=== PATIENT | female | born 1960 | race African-American/Black ===

== ENCOUNTER 2017-04-19 02:59 | Emergency (ER) | payer SELFPAY ==
[2017-04-19] MEDS ORDERED: Fentanyl 100 MCG/2 ML VIAL ONE (04:13)
[2017-04-19] MEDS ORDERED: Adacel (T-DAP) 0.5 ML VIAL ONE (07:13)
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
== END 2017-04-19 07:33 | disposition home or self-care (01) ==
LOC: ERS 02:59
DX: S02.5XXA Fracture of tooth (traumatic), initial encounter for closed fracture (principal); E11.9 Type 2 diabetes mellitus without complications; I10 Essential (primary) hypertension; Y04.0XXA Assault by unarmed brawl or fight, initial encounter
CPT/HCPCS: 70486; 72125; 90471; 90715; 96374; J3010

== ENCOUNTER 2018-01-17 15:11 | Emergency (ER) | payer SELFPAY ==
--- NOTE | 2018-01-17 15:52 | RAD ---
LEFT ANKLE THREE VIEWS: 01/17/18 HISTORY: Pain. Fall. COMPARISON: None. FINDINGS: There is mild bone demineralization. Joint spaces are preserved. There is no fracture. No significan t soft tissue swelling. IMPRESSION: 1. No fracture. 2. Mild bone demineralization. 1. POS: [facility]
--- NOTE | 2018-01-17 15:54 | RAD ---
LEFT KNEE FOUR VIEWS: 01/17/18 COMPARISON: 11/03/15. HISTORY: Pain. FINDINGS: There is a suprapatellar effusion. There is severe tricompartmental degenerative change. No obvious f racture. IMPRESSION: 1. Severe tricompartmental degenerative change. 2. Small suprapatellar effusion. POS: [facility]
[2018-01-17] MEDS ORDERED: Ketorolac Tromethamine 30 MG/ML VIAL ONE (17:31)
[2018-01-17] MEDS ORDERED: traMADol HCl 50 MG TAB ONE (18:38)
== END 2018-01-17 19:35 | disposition home or self-care (01) ==
LOC: ERS 15:11
DX: M25.562 Pain in left knee (principal); E11.9 Type 2 diabetes mellitus without complications; I10 Essential (primary) hypertension; F17.210 Nicotine dependence, cigarettes, uncomplicated
CPT/HCPCS: 96372; J1885

== ENCOUNTER 2019-12-25 03:19 | Emergency (ER) | payer SELFPAY ==
[2019-12-25] MEDS ORDERED: Boostrix 0.5 ML VIAL ONE (03:36)
[2019-12-25 04:03] LABS: #Basophils 0.1 thou/uL (0.0-0.2); #Eosinphils 0.1 thou/uL (0.0-0.7); #Lymphocytes 3.9 thou/uL (1.20-3.40); #Monocytes 0.7 thou/uL (0.11-0.59); #Neutrophils 8.6 thou/uL (1.40-6.50); %Basophils 0.5 % (0.0-1.0); %Eosinophils 0.6 % (0.0-10.0); %Lymphocytes 29.2 % (21.0-51.0); %Monocytes 5.2 % (0.0-10.0); %Neutrophils 64.5 % (42.0-75.0); Hemoglobin 12.8 g/dL (12.0-16.0); Mean Corpuscular HGB CONC 33.1 g/dL (32.0-36.0); Mean Corpuscular Volume 93.6 fL (78.0-98.0); Mean Platelet Volume 7.1 fL (7.4-10.4); Platelet Count 373 thou/uL (130-400); RBC Distribution Width 12.1 % (11.5-14.5); Red Blood Cell (RBC) Count 4.14 mill/uL (4.20-5.40); White Blood Cell (WBC) Count 13.4 thou/uL (4.8-10.8)
[2019-12-25 04:23] LABS: ALT (SGPT) 14 U/L (8-55); AST (SGOT) 19 U/L (5-34); Albumin 3.8 g/dL (3.5-5.0); Alcohol Less than 10 mg/dL (Less than 10); Alkaline Phosphatase 74 U/L (40-110); Anion Gap 14 mmol/L (10-20); BUN (Urea Nitrogen) 17 mg/dL (9.8-20.1); Bilirubin, Total 0.4 mg/dL (0.2-1.2); Calc. Creatinine Clearance 0 mL/min (70-130); Calcium 8.9 mg/dL (7.8-10.44); Carbon Dioxide 21 mmol/L (22-29); Chloride 104 mmol/L (98-107); Estimated GFR-MDRD 89; Globulin 3.6 g/dL (2.4-3.5); Glucose 149 mg/dL (70-105); Protein, Total 7.4 g/dL (6.0-8.3); Sodium 136 mmol/L (136-145)
[2019-12-25] MEDS ORDERED: Proparacaine 0.5% Opth 15 ML BOT ONE ×2 (04:28→06:16)
[2019-12-25] MEDS ORDERED: Lidocaine 1% (PF) 30 ML VIAL ONE (04:41)
[2019-12-25 06:06] LABS: Amphetamine Not Detected (NotDetected); Barbiturates Screen Not Detected (NotDetected); Benzodiazepine Screen Not Detected (NotDetected); Cocaine Metabolite Screen Detected (NotDetected); Medtox Control Line Valid? VALID (VALID); Medtox Reader # READER 4; Methadone Not Detected (NotDetected); Methamphetamine Not Detected (NotDetected); Opiate Screen Not Detected (NotDetected); Oxycodone Screen Not Detected (NotDetected); Phencyclidine (PCP) Not Detected (NotDetected); THC/Cannabinoid Screen Not Detected (NotDetected); Tricyclic Screen Not Detected (NotDetected)
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
--- NOTE | 2019-12-25 09:12 | RAD ---
LEFT KNEE 4 VIEWS: Date: 12/25/2019 INDICATION: Left knee pain. COMPARISON: Prior exam dated 01/17/2018. FINDINGS: There are stable changes of remote appearing depressed type lateral tibial plateau fracture that appe ars healed. There is advanced left knee osteoarthritis that is similar appearing. There is mild joint capsular distention. No acute fracture or subluxation is evident. IMPRESSION: No acute osseous abnormality. Post-traumatic and prominent degenerative change of the left knee. POS: [facility]
[2019-12-25] MEDS ORDERED: Iopamidol 370 76% 100 ML VIAL ONE (09:47)
== END 2019-12-25 08:59 | disposition short-term general hospital (02) ==
LOC: ERS 03:19
DX: S02.411A LeFort I fracture, initial encounter for closed fracture (principal); S02.31XA Fracture of orbital floor, right side, initial encounter for closed fracture; S01.511A Laceration without foreign body of lip, initial encounter; R04.0 Epistaxis; W18.30XA Fall on same level, unspecified, initial encounter
CPT/HCPCS: 12011; 36415; 51701; 70450; 70486; 71260; 72125; 74177; 80053; 80306; 80307; 85025; 90471; 90715; 94760; 96365; J0690; J2001; Q9967

== ENCOUNTER 2023-04-11 17:15 | Emergency (ER) | payer SELFPAY ==
[2023-04-11] MEDS ORDERED: Ketorolac Tromethamine 30 MG (1 mL) VIAL ONE (18:11)
== END 2023-04-11 18:47 | disposition home or self-care (01) ==
LOC: ERS 17:15
DX: S83.91XA Sprain of unspecified site of right knee, initial encounter (principal); M79.671 Pain in right foot; I10 Essential (primary) hypertension; E11.9 Type 2 diabetes mellitus without complications; F17.210 Nicotine dependence, cigarettes, uncomplicated; X50.1XXA Overexertion from prolonged static or awkward postures, initial encounter
CPT/HCPCS: 96372; J1885

== ENCOUNTER 2023-06-15 16:02 | Inpatient (IN) | payer SELFPAY ==
[2023-06-15 16:50] LABS: #Eosinphils 0.1 thou/uL (0.0-0.7); #Monocytes 0.8 thou/uL (0.11-0.59); #Neutrophils 7.5 thou/uL (1.40-6.50); %Basophils 0.4 % (0.0-1.0); %Eosinophils 0.7 % (0.0-10.0); %Lymphocytes 13.6 % (21.0-51.0); %Monocytes 8.2 % (0.0-10.0); %Neutrophils 76.8 % (42.0-75.0); Hematocrit 43.6 % (36.0-47.0); Mean Corpuscular HGB CONC 32.1 g/dL (32.0-36.0); Mean Corpuscular Hemoglobin 29.8 pg (27.0-31.0); Mean Corpuscular Volume 92.8 fl (78.0-98.0); Mean Platelet Volume 9.5 fL (7.4-10.4); Platelet Count 277 10x3/uL (130-400); RBC Distribution Width 12.9 % (11.5-14.5); White Blood Cell (WBC) Count 9.8 10x3/uL (4.8-10.8)
[2023-06-15] MEDS ORDERED: Ondansetron PF 4 MG/2 ML Vial ONE (17:12)
[2023-06-15] MEDS ORDERED: Morphine 4 MG/ML VIAL ONE ×2 (17:12→20:15)
[2023-06-15 17:13] LABS: ALT (SGPT) 8 U/L (8-55); AST (SGOT) 15 U/L (5-34); Alkaline Phosphatase 58 U/L (40-110); Anion Gap 13 mmol/L (10-20); BUN (Urea Nitrogen) 14 mg/dL (9.8-20.1); Bilirubin, Total 0.7 mg/dL (0.2-1.2); Calc. Creatinine Clearance 0 mL/min (70-130); Carbon Dioxide 28 mmol/L (22-29); Chloride 105 mmol/L (98-107); Estimated GFR 62; Globulin 3.9 g/dL (2.4-3.5); Glucose 114 mg/dL (70-105); Lipase 4 U/L (8-78); Potassium 3.7 mmol/L (3.5-5.1); Protein, Total 7.9 g/dL (6.0-8.3); Sodium 142 mmol/L (136-145)
[2023-06-15 17:16] LABS: Troponin I Less than 0.010 ng/mL (< 0.028)
[2023-06-15] MEDS ORDERED: Ondansetron ODT 4 MG TAB SL PRN (21:00)
[2023-06-15] MEDS ORDERED: Ondansetron PF 4 MG/2 ML Vial IVP PRN ×2 (21:00→21:37)
[2023-06-15] MEDS ORDERED: Nicotine 14 MG PATCH TD PRN (21:37)
[2023-06-15] MEDS ORDERED: Ondansetron ODT 4 MG TAB PO PRN (21:37)
[2023-06-15 22:34] VITALS: BMI 21.6
[2023-06-15 22:35] LABS: Hemoglobin A1c 4.8 % (4.0-6.0)
[2023-06-15 23:42] LABS: Troponin I Less than 0.010 ng/mL (< 0.028)
[2023-06-16] MEDS: Morphine 4 MG/ML VIAL SLOW IVP PRN (00:55)
[2023-06-16] MEDS ORDERED: Morphine 4 MG/ML VIAL ONE ×2 (00:57→05:50)
[2023-06-16 04:17] LABS: Troponin I Less than 0.010 ng/mL (< 0.028)
[2023-06-16 05:00] LABS: #Monocytes 1.3 thou/uL (0.11-0.59); #Neutrophils 8.4 thou/uL (1.40-6.50); %Basophils 0.2 % (0.0-1.0); %Eosinophils 0.2 % (0.0-10.0); %Lymphocytes 10.4 % (21.0-51.0); %Monocytes 12.1 % (0.0-10.0); %Neutrophils 76.7 % (42.0-75.0); Hematocrit 41.1 % (36.0-47.0); Hemoglobin 13.3 g/dL (12.0-16.0); Mean Corpuscular HGB CONC 32.4 g/dL (32.0-36.0); Mean Corpuscular Hemoglobin 29.5 pg (27.0-31.0); Mean Corpuscular Volume 91.1 fl (78.0-98.0); Mean Platelet Volume 9.8 fL (7.4-10.4); Platelet Count 263 10x3/uL (130-400); RBC Distribution Width 12.9 % (11.5-14.5); Red Blood Cell (RBC) Count 4.51 mill/uL (4.20-5.40)
[2023-06-16 05:30] LABS: Anion Gap 12 mmol/L (10-20); BUN (Urea Nitrogen) 13 mg/dL (9.8-20.1); Calc. Creatinine Clearance 66 mL/min (70-130); Calcium 9.6 mg/dL (7.8-10.44); Carbon Dioxide 26 mmol/L (22-29); Chloride 103 mmol/L (98-107); Estimated GFR 78; Glucose 114 mg/dL (70-105); Potassium 3.8 mmol/L (3.5-5.1); Sodium 137 mmol/L (136-145)
[2023-06-16] MEDS: Amlodipine 5 MG TAB PO SCH (09:51)
[2023-06-16] MEDS: Famotidine 20 MG TAB PO SCH (09:51)
[2023-06-16] MEDS ORDERED: HumaLOG 300 UNITS/3 ML VIAL SC PRN (11:07)
[2023-06-16] MEDS ORDERED: Glucagon 1 MG/ML KIT IM PRN (11:07)
[2023-06-16] MEDS ORDERED: Dextrose 5% in Water 1,000 ML IV PRN (11:07)
[2023-06-16] MEDS ORDERED: Dextrose 50% Abboject 50 ML SYRINGE SLOW IVP PRN (11:07)
[2023-06-16] MEDS: traMADol HCl 50 MG TAB PO PRN (12:24)
[2023-06-16] MEDS: Lidocaine 1% (PF) 30 ML VIAL SC SCH (13:57)
[2023-06-16 14:41] LABS: Synovial Fluid, Protein 4.3 g/dL (Not Available)
[2023-06-16 15:39] LABS: RBC Count-Automated (BF) 2336 /cu.mm; WBC/Nucleated-Auto (BF) 40295 /cu.mm
[2023-06-16 15:40] LABS: BF Color Yellow; Body Fluid Source Synovial Fluid; Clarity Cloudy/Turbid (Clear); Tube # EDTA
[2023-06-16 16:08] LABS: BF Segmented Neutrophils 85 %; Cell Count Non Hematic 13 %; Lymphocytes 2 %
[2023-06-16 19:59] LABS: Amphetamine Not Detected (NotDetected); Barbiturates Screen Not Detected (NotDetected); Benzodiazepine Screen Not Detected (NotDetected); Cocaine Metabolite Screen Detected (NotDetected); Methadone Not Detected (NotDetected); Methamphetamine Not Detected (NotDetected); Opiate Screen Detected (NotDetected); Oxycodone Screen Not Detected (NotDetected); Phencyclidine (PCP) Not Detected (NotDetected); THC/Cannabinoid Screen Not Detected (NotDetected); Tricyclic Screen Not Detected (NotDetected)
[2023-06-16] MEDS: Atorvastatin Calcium 20 MG TAB PO SCH (21:09)
[2023-06-17] MEDS: Aspirin 81 mg Enteric Coated Tablet PO SCH (09:40)
[2023-06-17] MEDS: cefTRIAXone\\ROCEPHIN 1 GM in Sodium Chloride 0.9% 100 ML IVPB SCH (09:40)
[2023-06-17] MEDS: Vancomycin 1 GM in Premix 1 BAG IVPB SCH (09:47)
[2023-06-17] MEDS ORDERED: Vancomycin (BATCH) 1.25 GM in Premix 1 BAG IVPB SCH (10:00)
[2023-06-17] MEDS: Vancomycin (BATCH) 1.5 GM in Premix 1 BAG IVPB SCH (11:34)
[2023-06-17] MEDS: Ibuprofen 600 MG TAB PO PRN (13:40)
[2023-06-17] MEDS: Vancomycin HCl 750 MG in Sodium Chloride 0.9% 250 ML 250 ML IVPB SCH (23:11)
[2023-06-18 06:26] LABS: #Eosinphils 0.1 thou/uL (0.0-0.7); #Monocytes 1.4 thou/uL (0.11-0.59); #Neutrophils 6.1 thou/uL (1.40-6.50); %Basophils 0.3 % (0.0-1.0); %Eosinophils 0.8 % (0.0-10.0); %Lymphocytes 17.1 % (21.0-51.0); %Monocytes 15.2 % (0.0-10.0); %Neutrophils 66.3 % (42.0-75.0); Hematocrit 36.6 % (36.0-47.0); Mean Corpuscular HGB CONC 32.8 g/dL (32.0-36.0); Mean Corpuscular Hemoglobin 30.5 pg (27.0-31.0); Mean Corpuscular Volume 93.1 fl (78.0-98.0); Mean Platelet Volume 9.6 fL (7.4-10.4); Platelet Count 251 10x3/uL (130-400); RBC Distribution Width 12.9 % (11.5-14.5); Red Blood Cell (RBC) Count 3.93 mill/uL (4.20-5.40); White Blood Cell (WBC) Count 9.2 10x3/uL (4.8-10.8)
[2023-06-18 06:47] LABS: Anion Gap 11 mmol/L (10-20); BUN (Urea Nitrogen) 15 mg/dL (9.8-20.1); Calc. Creatinine Clearance 70 mL/min (70-130); Calcium 9.5 mg/dL (7.8-10.44); Carbon Dioxide 28 mmol/L (22-29); Chloride 102 mmol/L (98-107); Estimated GFR 86; Glucose 92 mg/dL (70-105); Potassium 4.2 mmol/L (3.5-5.1); Sodium 137 mmol/L (136-145)
[2023-06-18 06:52] LABS: Vancomycin, Random 10.7 ug/mL (See Comment)
[2023-06-18] MEDS: Vancomycin 1 GM in Premix 1 BAG IVPB SCH (13:00)
[2023-06-18] MEDS: Ketorolac Tromethamine 30 MG (1 mL) VIAL IVP PRN (13:34)
[2023-06-19] MEDS: Mineral Oil ENEMA PR SCH (00:48)
[2023-06-19] MEDS: Bisacodyl 10 MG SUPP PR PRN (01:50)
[2023-06-19 05:21] LABS: #Eosinphils 0.1 thou/uL (0.0-0.7); #Monocytes 1.1 thou/uL (0.11-0.59); %Basophils 0.4 % (0.0-1.0); %Eosinophils 1.3 % (0.0-10.0); %Lymphocytes 18.4 % (21.0-51.0); %Monocytes 12.5 % (0.0-10.0); %Neutrophils 67.1 % (42.0-75.0); Hematocrit 36.4 % (36.0-47.0); Hemoglobin 11.6 g/dL (12.0-16.0); Mean Corpuscular HGB CONC 31.9 g/dL (32.0-36.0); Mean Corpuscular Hemoglobin 29.9 pg (27.0-31.0); Mean Corpuscular Volume 93.8 fl (78.0-98.0); Mean Platelet Volume 10.1 fL (7.4-10.4); Platelet Count 273 10x3/uL (130-400); Red Blood Cell (RBC) Count 3.88 mill/uL (4.20-5.40); White Blood Cell (WBC) Count 8.9 10x3/uL (4.8-10.8)
[2023-06-19 05:41] LABS: Anion Gap 12 mmol/L (10-20); BUN (Urea Nitrogen) 18 mg/dL (9.8-20.1); Calc. Creatinine Clearance 72 mL/min (70-130); Calcium 9.4 mg/dL (7.8-10.44); Carbon Dioxide 24 mmol/L (22-29); Chloride 105 mmol/L (98-107); Estimated GFR 88; Glucose 77 mg/dL (70-105); Potassium 4.3 mmol/L (3.5-5.1); Sodium 137 mmol/L (136-145)
[2023-06-19] MEDS: Acetaminophen 325 MG TAB PO PRN (17:04)
[2023-06-20 08:14] LABS: #Eosinphils 0.2 thou/uL (0.0-0.7); #Monocytes 0.7 thou/uL (0.11-0.59); #Neutrophils 4.5 thou/uL (1.40-6.50); %Basophils 0.6 % (0.0-1.0); %Eosinophils 2.3 % (0.0-10.0); %Lymphocytes 25.5 % (21.0-51.0); %Monocytes 9.7 % (0.0-10.0); %Neutrophils 61.8 % (42.0-75.0); Hematocrit 35.9 % (36.0-47.0); Hemoglobin 11.8 g/dL (12.0-16.0); Mean Corpuscular HGB CONC 32.9 g/dL (32.0-36.0); Mean Corpuscular Hemoglobin 30.1 pg (27.0-31.0); Mean Corpuscular Volume 91.6 fl (78.0-98.0); Mean Platelet Volume 9.7 fL (7.4-10.4); Platelet Count 316 10x3/uL (130-400); RBC Distribution Width 12.8 % (11.5-14.5); Red Blood Cell (RBC) Count 3.92 mill/uL (4.20-5.40); White Blood Cell (WBC) Count 7.3 10x3/uL (4.8-10.8)
[2023-06-20 08:42] LABS: Vancomycin, Random 20.8 ug/mL (See Comment)
[2023-06-20 08:43] LABS: Anion Gap 11 mmol/L (10-20); BUN (Urea Nitrogen) 16 mg/dL (9.8-20.1); Calc. Creatinine Clearance 81 mL/min (70-130); Calcium 9.4 mg/dL (7.8-10.44); Carbon Dioxide 29 mmol/L (22-29); Chloride 103 mmol/L (98-107); Estimated GFR 99; Glucose 87 mg/dL (70-105); Potassium 4.3 mmol/L (3.5-5.1); Sodium 139 mmol/L (136-145)
[2023-06-20 16:12] LABS: Fungus Stain Final report (.)
[2023-06-21 05:44] LABS: #Basophils 0.04 10x3/uL (0.0-0.2); %Basophils 0.5 % (0.0-1.0); %Eosinophils 2.5 % (0.0-10.0); %Lymphocytes 23.5 % (21.0-51.0); %Monocytes 11.4 % (0.0-10.0); %Neutrophils 61.8 % (42.0-75.0); Hematocrit 35.6 % (36.0-47.0); Hemoglobin 11.6 g/dL (12.0-16.0); Mean Corpuscular HGB CONC 32.6 g/dL (32.0-36.0); Mean Corpuscular Hemoglobin 29.9 pg (27.0-31.0); Mean Corpuscular Volume 91.8 fL (78.0-98.0); Mean Platelet Volume 9.5 fL (7.4-10.4); Platelet Count 301 10x3/uL (130-400); RBC Distribution Width 12.5 % (11.5-14.5); Red Blood Cell (RBC) Count 3.88 mill/uL (4.20-5.40)
[2023-06-21 06:03] LABS: Anion Gap 12 mmol/L (10-20); BUN (Urea Nitrogen) 18 mg/dL (9.8-20.1); Calc. Creatinine Clearance 72 mL/min (70-130); Carbon Dioxide 28 mmol/L (22-29); Chloride 104 mmol/L (98-107); Estimated GFR 88; Glucose 112 mg/dL (70-105); Sodium 140 mmol/L (136-145)
[2023-06-21 14:23] VITALS: BP 123/88; TEMP 98
== END 2023-06-21 14:56 | disposition home or self-care (01) | DRG 550 ==
LOC: ERS 16:02 → 2NO 20:45 → ERHOLD 20:45 → 2NO 06-16 08:46 → OBSVTOIN 06-16 14:29 → T4-A 06-17 20:54
PROVIDERS: ADMIT Student in an Organized Health Care Education/Training Program; ATTEND Hospitalist
PROC: 0S9C3ZZ Drainage of Right Knee Joint, Percutaneous Approach (ICD-10-PCS; principal; 2023-06-16)
DX: M00.9 Pyogenic arthritis, unspecified (principal); M25.461 Effusion, right knee; G89.29 Other chronic pain; M17.11 Unilateral primary osteoarthritis, right knee; M81.0 Age-related osteoporosis without current pathological fracture; F19.10 Other psychoactive substance abuse, uncomplicated; F17.210 Nicotine dependence, cigarettes, uncomplicated; F14.10 Cocaine abuse, uncomplicated; F10.90 Alcohol use, unspecified, uncomplicated; I10 Essential (primary) hypertension; E11.9 Type 2 diabetes mellitus without complications; Z91.199 Patient's noncompliance with other medical treatment and regimen due to unspecified reason; Z79.899 Other long term (current) drug therapy; Z90.49 Acquired absence of other specified parts of digestive tract; Z71.6 Tobacco abuse counseling; Z71.51 Drug abuse counseling and surveillance of drug abuser; Z79.82 Long term (current) use of aspirin
CPT/HCPCS: 36415; 36416; 71045; 76999; 80048; 80053; 80202; 80306; 82945; 83036; 83690; 83735; 84157; 84484; 85025; 85060; 86140; 87040; 87070; 87102; 87116; 87205; 87206; 89051; 89060; 93005; 93306; 96374; 96375; 96376; G0378; J0696; J1885; J2270; J2405; J3370; J3370-JW; J3490; J7050

== ENCOUNTER 2023-09-30 03:42 | Emergency (ER) | payer SELFPAY ==
[2023-09-30] MEDS ORDERED: Acetaminophen 500 MG TAB ONE (04:43)
[2023-09-30 04:47] LABS: #Basophils 0.04 10x3/uL (0.0-0.2); %Basophils 0.4 % (0.0-1.0); %Eosinophils 0.5 % (0.0-10.0); %Lymphocytes 19.6 % (21.0-51.0); %Monocytes 10.1 % (0.0-10.0); Mean Corpuscular HGB CONC 34.3 g/dL (32.0-36.0); Mean Corpuscular Hemoglobin 30.3 pg (27.0-31.0); Mean Corpuscular Volume 88.4 fL (78.0-98.0); Mean Platelet Volume 9.6 fL (7.4-10.4); Platelet Count 217 10x3/uL (130-400); RBC Distribution Width 14.3 % (11.5-14.5); Red Blood Cell (RBC) Count 3.96 mill/uL (4.20-5.40)
[2023-09-30 05:12] LABS: PTT 28.5 sec (22.9-36.1); Prothrombin Time 12.8 sec (12.0-14.7)
[2023-09-30 05:15] LABS: Troponin I Less than 0.010 ng/mL (< 0.028)
[2023-09-30 05:40] LABS: ALT (SGPT) 18 U/L (8-55); AST (SGOT) 25 U/L (5-34); Albumin 3.4 g/dL (3.5-5.0); Alkaline Phosphatase 58 U/L (40-110); Anion Gap 13 mmol/L (10-20); BUN (Urea Nitrogen) 15 mg/dL (9.8-20.1); Bilirubin, Total 0.7 mg/dL (0.2-1.2); Calc. Creatinine Clearance 0 mL/min (70-130); Carbon Dioxide 22 mmol/L (22-29); Chloride 110 mmol/L (98-107); Estimated GFR 84; Globulin 3.7 g/dL (2.4-3.5); Glucose 86 mg/dL (70-105); Lipase 9 U/L (8-78); Magnesium 1.8 mg/dL (1.6-2.6); Potassium 4.1 mmol/L (3.5-5.1); Protein, Total 7.1 g/dL (6.0-8.3); Sodium 141 mmol/L (136-145)
[2023-09-30] MEDS ORDERED: Bacitracin 1 PK ONE (06:00)
== END 2023-09-30 06:06 | disposition home or self-care (01) ==
LOC: ERS 03:42
DX: S31.010A Laceration without foreign body of lower back and pelvis without penetration into retroperitoneum, initial encounter (principal); S80.11XA Contusion of right lower leg, initial encounter; R07.89 Other chest pain; E11.9 Type 2 diabetes mellitus without complications; I10 Essential (primary) hypertension; Y04.8XXA Assault by other bodily force, initial encounter
CPT/HCPCS: 71045; 80053; 83690; 83735; 83880; 84443; 84484; 85025; 85610; 85730; 93005

== ENCOUNTER 2024-09-26 15:25 | Emergency (ER) | payer SELFPAY ==
[~2024-09-26 15:25] MED LIST: Iopamidol-370 76% 500 ML MDV (1 ML CHARGE) ONE
[2024-09-26] MEDS ORDERED: Acetaminophen 500 MG TAB ONE (15:56)
[2024-09-26 16:12] LABS: #Basophils 0.04 10x3/uL (0.0-0.2); #Eosinophils 0.09 10x3/uL (0.0-0.7); #Monocytes 1.21 10x3/uL (0.11-0.59); #Neutrophils 8.26 10x3/uL (1.40-6.50); %Basophils 0.3 % (0.0-1.0); %Eosinophils 0.8 % (0.0-10.0); %Lymphocytes 16.9 % (21.0-51.0); %Monocytes 10.4 % (0.0-10.0); Hematocrit 36.1 % (36.0-47.0); Hemoglobin 12.2 g/dL (12.0-16.0); Mean Corpuscular HGB CONC 33.8 g/dL (32.0-36.0); Mean Corpuscular Hemoglobin 30.3 pg (27.0-31.0); Mean Corpuscular Volume 89.6 fL (78.0-98.0); Mean Platelet Volume 9.1 fL (7.4-10.4); Platelet Count 259 10x3/uL (130-400); RBC Distribution Width 13.2 % (11.5-14.5); Red Blood Cell (RBC) Count 4.03 mill/uL (4.20-5.40); White Blood Cell (WBC) Count 11.64 10x3/uL (4.8-10.8)
[2024-09-26 16:14] LABS: Actual Bicarbonate (HCO3v) 29.9 mEq/L (22-28); Base Excess 3.7 mEq/L (-2.0 to +3.0); Calcium, Ionized (venous) 1.15 mmol/L (1.16-1.32); Chloride (VBG) 104 mmol/L (98-106); Hematocrit-VBG 39 % (36.0-47.0); Hemoglobin (Hb) 13.2 g/dL (11.7-16.0); Potassium (VBG) 3.78 mmol/L (3.70-5.30); Sodium 142 mmol/L (133-146); pH (venous) 7.379 (7.32-7.43)
[2024-09-26 16:28] LABS: Acetaminophen Less than 10 mcg/mL (Less than 10); Alcohol Less than 10.0 mg/dL (Less than 10); Salicylate Less than 8.0 mg/dL (Less than 8.0)
[2024-09-26 16:30] LABS: ALT (SGPT) 14 U/L (Less than 34); AST (SGOT) 20 U/L (11-34); Albumin 3.4 g/dL (3.1-4.5); Alkaline Phosphatase 88 U/L (40-110); Anion Gap 15 mmol/L (10-20); BUN (Urea Nitrogen) 13 mg/dL (9.8-20.1); Bilirubin, Total 0.2 mg/dL (0.3-1.2); Calc. Creatinine Clearance 0 mL/min (70-130); Calcium 9.1 mg/dL (7.8-10.44); Carbon Dioxide 28 mmol/L (23-31); Chloride 103 mmol/L (98-107); Estimated GFR 94; Globulin 3.6 g/dL (2.4-3.5); Glucose 94 mg/dL (80-115); Lipase 14 U/L (8-78); Potassium 3.7 mmol/L (3.5-5.1); Sodium 142 mmol/L (136-145)
[2024-09-26 16:41] LABS: Bilirubin Negative (Negative); Blood, Urine Negative (Negative); CAUTI Indications for Culture Pelvic or flank pain; Clarity Clear (Clear); Glucose, Urine (Dipstick) Normal (Negative); Ketone, Urine Negative (Negative); Leukocyte 500 Leu/uL (Negative); Nitrite Negative (Negative); Protein, Urine (Dipstick) Negative (Neg-Trace); RBC/HPF 0-3 HPF (0-3); Specific Gravity, Urine 1.019 (1.002-1.036); Squamous Epithelial 0-3 HPF (0-3); Urobilinogen Normal mg/dL (Less than 2); WBC/HPF Greater than 50 HPF (0-3); pH, Urine 5.5 (5.0-9.0)
[2024-09-26 16:42] LABS: Bacteria/HPF 1+ HPF (None Seen)
[2024-09-26 16:43] LABS: Urine Culture Reflex Yes Yes
[2024-09-26 16:46] LABS: Amphetamine Negative (Negative); Barbiturates Screen Negative (Negative); Benzodiazepine Screen Negative (Negative); Cocaine Metabolite Screen PRELIM POSITIVE (Negative); Methadone Negative (Negative); Methamphetamine Negative (Negative); Opiate Screen Negative (Negative); Oxycodone Screen Negative (Negative); Phencyclidine (PCP) Negative (Negative); THC/Cannabinoid Screen Negative (Negative); Tricyclic Screen Negative (Negative)
[2024-09-26] MEDS ORDERED: Famotidine/PF 20 mg/2ml Vial ONE (17:02)
[2024-09-26 17:23] LABS: Troponin I Less than 0.010 ng/mL (< 0.028)
[2024-09-26] MEDS ORDERED: cefTRIAXone (ROCEPHIN) 1 GM VIAL ONE (17:35)
[2024-09-26] MEDS ORDERED: Sodium Chloride 0.9% 100 ML ONE (17:35)
== END 2024-09-26 20:38 | disposition home or self-care (01) ==
LOC: ERS 15:25
DX: R07.9 Chest pain, unspecified (principal); N39.0 Urinary tract infection, site not specified; F14.10 Cocaine abuse, uncomplicated; I10 Essential (primary) hypertension; E11.9 Type 2 diabetes mellitus without complications
CPT/HCPCS: 36415; 71045; 71275; 74177; 80053; 80306; 80307; 81001; 82805; 83605; 83690; 84484; 85025; 87040; 87086; 93005; 96374; 96375; J0696; J3490; Q9967